=== PATIENT | male | born 1970 | race African-American/Black ===

== ENCOUNTER 2019-02-09 06:01 | Day surgery (SDC) | payer OTHER ==
[~2019-02-09 06:01] MED LIST: HYDRODIURIL12.5 MG; MICARDIS80 MG PO
[2019-02-09] MEDS ORDERED: CIPRO500 MG PO (09:44)
[2019-02-09] MEDS ORDERED: ZANTAC300 MG PO (09:45)
[2019-02-09] MEDS ORDERED: ULTRACET PO (11:08)
== END 2019-02-09 11:35 | disposition home or self-care (01) ==
LOC: CIR.AMB 06:01 → EDBD 13:00
DX: K80.10 Calculus of gallbladder with chronic cholecystitis without obstruction (principal); K66.0 Peritoneal adhesions (postprocedural) (postinfection)